=== PATIENT | male | born 1950 | race Caucasian/White ===

== ENCOUNTER 2018-01-22 10:09 | Emergency (ER) | payer MEDICARE ==
[~2018-01-22] VITALS: Ht 167.6 cm; Wt 67.0 kg
[~2018-01-22 10:09] MED LIST: ALBU8.5H8 INH; DULO60CA7 PO; ESZO3TAB28 PO; FLUT16SP2 NAS; FLUT1DIS3 INH; HYDR-3237 PO; MELO15TA24 PO; METH5TAB2 PO; PREG75CA PO; TAMS-11 PO
[2018-01-22 10:14] VITALS: BP 121/70
[2018-01-22] MEDS ORDERED: HYDROmorphone 2 MG/ML, 1ML ONE (10:45)
[2018-01-22] MEDS ORDERED: METHOCARBAMOL 750 MG TABLET ONE (10:46)
[2018-01-22] MEDS ORDERED: METHOCARBAMOL 750 MG TABLET PO ONE (11:00)
[2018-01-22] MEDS ORDERED: HYDROmorphone 2 MG/ML, 1ML IVPush PRN (11:00)
== END 2018-01-22 13:18 | disposition home or self-care (01) ==
LOC: ED 13:12
DX: G89.11 Acute pain due to trauma (principal); G89.29 Other chronic pain; M54.5 Low back pain; C67.9 Malignant neoplasm of bladder, unspecified
CPT/HCPCS: 93005; 96374; 99284; J1170

== ENCOUNTER 2018-03-17 08:04 | Emergency (ER) | payer MEDICARE ==
[~2018-03-17] VITALS: Ht 167.6 cm; Wt 66.0 kg
[2018-03-17 08:07] VITALS: BP 117/67
[2018-03-17] MEDS ORDERED: PREG50CA PO (08:20)
[2018-03-17] MEDS ORDERED: HYDR-879 PO (08:20)
[2018-03-17] MEDS ORDERED: MORPHINE SULFATE 4 MG/ML, 1ML IVPush PRN (08:30)
[2018-03-17] MEDS ORDERED: ONDANSETRON ODT 4 MG PO ONE (08:30)
[2018-03-17] MEDS ORDERED: ONDANSETRON ODT 4 MG ONE (08:37)
[2018-03-17] MEDS ORDERED: MORPHINE SULFATE 4 MG/ML, 1ML ONE (08:38)
[2018-03-17] MEDS ORDERED: METHOCARBAMOL 750 MG TABLET ONE (09:24)
[2018-03-17] MEDS ORDERED: METHOCARBAMOL 750 MG TABLET PO ONE (09:30)
== END 2018-03-17 09:51 | disposition home or self-care (01) ==
LOC: ED 09:12
DX: S39.012A Strain of muscle, fascia and tendon of lower back, initial encounter (principal); X58.XXXA Exposure to other specified factors, initial encounter; Y93.89 Activity, other specified; Y92.89 Other specified places as the place of occurrence of the external cause; Y99.8 Other external cause status; M51.36 Other intervertebral disc degeneration, lumbar region; Z87.891 Personal history of nicotine dependence; C67.9 Malignant neoplasm of bladder, unspecified
CPT/HCPCS: 72110; 96374; 99284; Q0162

== ENCOUNTER → 2018-05-11 | Outpatient (CLI) | payer MEDICARE ==
[~2018-05-11] MED LIST changes: +HYDR-3622 PO; +METH750T87 PO; +OXYC-307 PO; +OXYC1TAB8 PO; +PREG50CA PO
[2018-05-11 12:15] LABS: BASOPHILS # (AUTO) 0.02 x10^3/uL (0-0.1); BASOPHILS % (AUTO) 0 % (0-1); EOSINOPHILS # (AUTO) 0.36 x10^3/uL (0-0.4); EOSINOPHILS % (AUTO) 4 % (1-7); LYMPHOCYTES % (AUTO) 18 % (22-44); MD NO; MEAN CORPUSCULAR HEMOGLOBIN 32.1 pg (27.5-34.5); MEAN CORPUSCULAR HGB CONC 34.1 g/dL (33.2-36.2); MEAN CORPUSCULAR VOLUME 94.2 fL (81-97); MEAN PLATELET VOLUME 9.3 fL (7.4-10.4); MONOCYTES # (AUTO) 0.56 x10^3/uL (0.2-0.8); MONOCYTES % (AUTO) 7 % (2-9); NEUTROPHILS # (AUTO) 5.69 x10^3/uL (1.8-6.8); NEUTROPHILS % (AUTO) 70 % (42-75); PLATELET COUNT 196 x10^3/uL (130-400); RED CELL DISTRIBUTION WIDTH 14.7 % (9.4-14.8)
[2018-05-11 12:22] LABS: MICROSCOPIC AUTO
[2018-05-11 12:25] LABS: CULTURE INDICATED? NO
[2018-05-11 12:25] LABS: INTERNATIONAL NORMALIZED RATIO 0.96 (0.93-1.1)
[2018-05-11 12:27] LABS: ALBUMIN 3.7 g/dL (3.4-5.0); ANION GAP 7 mmol/L (5-15); CALCIUM 9.1 mg/dL (8.5-10.1); CHLORIDE 103 mmol/L (98-107)
[2018-05-11 12:33] LABS: ALANINE AMINOTRANSFERASE 38 U/L (12-78); ALKALINE PHOSPHATASE 74 U/L (45-117); BILIRUBIN,TOTAL 0.6 mg/dL (0.2-1.0); CREATININE 1.28 mg/dL (0.7-1.3)
== END | disposition home or self-care (01) ==
LOC: STAR 11:07
PROVIDERS: ATTEND Neurological Surgery
DX: Z01.818 Encounter for other preprocedural examination (principal); J44.9 Chronic obstructive pulmonary disease, unspecified; M48.02 Spinal stenosis, cervical region; M43.26 Fusion of spine, lumbar region
CPT/HCPCS: 36415; 71046; 80053; 81001; 85025; 85610; 85730; 93005

== ENCOUNTER 2018-05-18 05:22 | Inpatient (IN) | payer MEDICARE ==
[~2018-05-18] VITALS: Ht 167.6 cm; Wt 65.2 kg
[~2018-05-18 05:22] MED LIST changes: -OXYC-307 PO
[2018-05-18] MEDS ORDERED: LACTATED RINGERS 1,000 ML IV SCH (06:11)
[2018-05-18] MEDS ORDERED: BUPIVACAINE/PF 0.5% ONE (06:28)
[2018-05-18] MEDS ORDERED: THROMBIN 5,000 UNIT VIAL TP ONE (06:28)
[2018-05-18] MEDS ORDERED: BACITRACIN 50,000 UNIT ONE (06:29)
[2018-05-18] MEDS ORDERED: EPINEPHRINE 1 MG/ML, 1ML ONE (06:29)
[2018-05-18] MEDS ORDERED: PROPOFOL 10 MG/ML, 20ML ONE ×2 (06:51→08:27)
[2018-05-18] MEDS ORDERED: MIDAZOLAM 1 MG/ML, 2ML ONE (06:51)
[2018-05-18] MEDS ORDERED: LIDOCAINE-MPF 2% ,5ML ONE (06:51)
[2018-05-18] MEDS ORDERED: DEXAMETHASONE 4 MG/ML, 1ML ONE ×2 (06:51)
[2018-05-18] MEDS ORDERED: CEFAZOLIN 1,000 MG ONE ×2 (06:51)
[2018-05-18] MEDS ORDERED: SUCCINYLCHOLINE 20 MG/ML, 10ML ONE (06:51)
[2018-05-18] MEDS ORDERED: FENTANYL PF 250 MCG/5ML ONE (06:51)
[2018-05-18] MEDS ORDERED: ROCURONIUM 10MG/ML,5ML ONE (06:52)
[2018-05-18] MEDS ORDERED: ONDANSETRON 2MG/ML, 2ML ONE (06:52)
[2018-05-18] MEDS ORDERED: PROPOFOL 50 ML ONE (06:53)
[2018-05-18] MEDS ORDERED: ACETAMINOPHEN 500 MG TABLET PO ONE (07:00)
[2018-05-18] MEDS ORDERED: ONDANSETRON ODT 8 MG PO ONE (07:00)
[2018-05-18] MEDS ORDERED: GABAPENTIN 300 MG CAPSULE PO ONE (07:00)
[2018-05-18] MEDS ORDERED: PHENYLEPHRINE 10 MG/ML ONE (07:06)
[2018-05-18] MEDS ORDERED: MIDAZOLAM 1 MG/ML, 2ML IV PRN (08:00)
[2018-05-18] MEDS ORDERED: DIAZEPAM 5 MG/ML, 2ML IVPush PRN (08:00)
[2018-05-18] MEDS ORDERED: LORazepam 2 MG/ML, 1ML IVPush PRN (08:00)
[2018-05-18] MEDS ORDERED: ALBUTEROL SULFATE 2.5 MG/3 ML NPPB PRN (08:00)
[2018-05-18] MEDS ORDERED: SCOPOLAMINE PATCH, 1.5MG PATCH.TD72 TD PRN (08:00)
[2018-05-18] MEDS ORDERED: FENTANYL PF 100 MCG/2ML IV PRN (08:00)
[2018-05-18] MEDS ORDERED: MEPERIDINE/PF 25MG/0.5ML IVPush PRN (08:00)
[2018-05-18] MEDS ORDERED: hydrALAzine 20 MG/ML, 1ML IV PRN (08:00)
[2018-05-18] MEDS ORDERED: EPHEDRINE 50 MG/ML, 1ML IVPush PRN (08:00)
[2018-05-18] MEDS ORDERED: MORPHINE SULFATE 4 MG/ML, 1ML IVPush PRN (08:00)
[2018-05-18] MEDS ORDERED: METOPROLOL 1 MG/ML, 5ML IV PRN (08:00)
[2018-05-18] MEDS ORDERED: METOCLOPRAMIDE 5 MG/ML, 2ML IV PRN (08:00)
[2018-05-18] MEDS ORDERED: LABETALOL 5MG/ML, 20ML IV PRN ×2 (08:00→11:30)
[2018-05-18] MEDS ORDERED: OXYcodone 5 MG/5 ML ORAL.SOL UDC PO PRN (08:00)
[2018-05-18] MEDS ORDERED: LORazepam 2 MG/ML, 1ML ONE (09:14)
[2018-05-18] MEDS ORDERED: HYDROmorphone 2 MG/ML, 1ML ONE (09:14)
[2018-05-18] MEDS ORDERED: OXYcodone 5 MG/5 ML ORAL.SOL UDC ONE (09:14)
[2018-05-18] MEDS: HYDROmorphone 1 MG/ML, 1ML IV PRN ×3 (09:18→09:41)
[2018-05-18 11:00] VITALS: BP 115/65
[2018-05-18 11:03] VITALS: BP 115/65
[2018-05-18] MEDS ORDERED: BISACODYL 10 MG SUPP PR PRN (11:30)
[2018-05-18] MEDS ORDERED: MAGNESIUM HYDROXIDE 8%, 30ML UDC PO PRN (11:30)
[2018-05-18] MEDS ORDERED: PROMETHAZINE 25 MG/ML, 1ML IM PRN (11:30)
[2018-05-18] MEDS ORDERED: METHOCARBAMOL 750 MG TABLET PO PRN (11:30)
[2018-05-18] MEDS ORDERED: DIPHENHYDRAMINE 50 MG CAPSULE PO PRN (11:30)
[2018-05-18] MEDS ORDERED: morphine SULFATE 10 MG/ML, 1ML IV PRN (11:30)
[2018-05-18] MEDS ORDERED: ONDANSETRON 2MG/ML, 2ML IV PRN (11:30)
[2018-05-18] MEDS ORDERED: ZOLPIDEM 5MG TABLET PO PRN (12:00)
[2018-05-18] MEDS ORDERED: HYDROcodone/APAP 10/325 MG TABLET PO PRN (12:00)
[2018-05-18 12:47] VITALS: BP 123/68
[2018-05-18] MEDS: D5%-0.9% NACL+KCL 20MEQ 1,000 ML IV SCH ×2 (13:07→22:30)
[2018-05-18] MEDS: OXYcodone/APAP 10/325MG TABLET PO PRN ×2 (16:15→20:31)
[2018-05-18] MEDS: CEFAZOLIN PMX 1GM/50ML 50 ML IVPB SCH ×2 (16:15→23:52)
[2018-05-18] MEDS: ALBUTEROL SULFATE 2.5 MG/3 ML NPPB SCH ×2 (17:10→20:27)
[2018-05-18] MEDS: PREGABALIN 25 MG CAPSULE PO SCH (20:29)
[2018-05-18] MEDS: DULOXETINE 30 MG CAPSULE.DR PO SCH (20:29)
[2018-05-18 20:41] VITALS: BP 117/73
[2018-05-19] MEDS: OXYcodone/APAP 10/325MG TABLET PO PRN ×4 (00:35→12:57)
[2018-05-19 03:50] VITALS: BP 120/72
[2018-05-19 07:13] VITALS: BP 118/77
[2018-05-19] MEDS: PREGABALIN 25 MG CAPSULE PO SCH (08:03)
[2018-05-19] MEDS: DULOXETINE 30 MG CAPSULE.DR PO SCH (08:03)
[2018-05-19] MEDS: D5%-0.9% NACL+KCL 20MEQ 1,000 ML IV SCH (08:30)
[2018-05-19] MEDS: ALBUTEROL SULFATE 2.5 MG/3 ML NPPB SCH ×3 (08:35→14:19)
[2018-05-19] MEDS ORDERED: FLUTICASONE NASAL SPRAY 16GM NAS SCH (09:00)
[2018-05-19] MEDS ORDERED: SENNA/DOCUSATE TABLET PO SCH (09:00)
[2018-05-19] MEDS ORDERED: OXYC-307 PO (14:26)
[2018-05-19] MEDS ORDERED: METH750T87 PO (14:27)
[2018-05-19 15:09] VITALS: BP 134/71
== END 2018-05-19 15:10 | disposition home or self-care (01) | DRG 472 ==
LOC: ORIP 05:22 → 4NOR 10:52
PROVIDERS: ADMIT Neurological Surgery; ATTEND Neurological Surgery
PROC: 0RB30ZZ Excision of Cervical Vertebral Disc, Open Approach (ICD-10-PCS; 2018-05-18)
PROC: 4A11X4G Monitoring of Peripheral Nervous Electrical Activity, Intraoperative, External Approach (ICD-10-PCS; 2018-05-18)
PROC: 0RG20A0 Fusion of 2 or more Cervical Vertebral Joints with Interbody Fusion Device, Anterior Approach, Anterior Column, Open Approach (ICD-10-PCS; principal; 2018-05-18 07:00)
DX: M48.02 Spinal stenosis, cervical region (principal); G95.20 Unspecified cord compression; M50.123 Cervical disc disorder at C6-C7 level with radiculopathy; M53.2X2 Spinal instabilities, cervical region; Z88.8 Allergy status to other drugs, medicaments and biological substances; I10 Essential (primary) hypertension; G89.29 Other chronic pain; M19.90 Unspecified osteoarthritis, unspecified site; N40.0 Benign prostatic hyperplasia without lower urinary tract symptoms
CPT/HCPCS: 72040; 94640; C1713; G0378; J0171; J0690; J1100; J1170; J2250; J2405; J2704; J3010; J3490; J7613; Q0162; C1762; J0330; J2060; J2370; J3480; J7120

== ENCOUNTER 2018-07-05 13:11 | Emergency (ER) | payer MEDICARE ==
[~2018-07-05] VITALS: Ht 170.2 cm; Wt 66.0 kg
[~2018-07-05 13:11] MED LIST changes: +MORP-52 PO; +OXYC-307 PO; +OXYC10TA6 PO
--- NOTE | 2018-07-05 13:42 | NUR ---
DR MIR TO [facility] EVALUATING PT AT THIS TIME.
[2018-07-05] MEDS ORDERED: DIAZEPAM 5 MG/ML, 10ML VIAL IV ONE (14:00)
[2018-07-05] MEDS ORDERED: HYDROmorphone 2 MG/ML, 1ML IVPush PRN (14:00)
[2018-07-05] MEDS ORDERED: SODIUM CHLORIDE FLUSH 10ML SYR IVF ONE (14:00)
[2018-07-05] MEDS ORDERED: HYDROmorphone 2 MG/ML, 1ML ONE (14:07)
[2018-07-05 14:11] LABS: BASOPHILS # (AUTO) 0.03 x10^3/uL (0-0.1); BASOPHILS % (AUTO) 0 % (0-1); EOSINOPHILS # (AUTO) 0.18 x10^3/uL (0-0.4); EOSINOPHILS % (AUTO) 2 % (1-7); LYMPHOCYTES # (AUTO) 2.59 x10^3/uL (1-3.4); LYMPHOCYTES % (AUTO) 31 % (22-44); MD NO; MEAN CORPUSCULAR HEMOGLOBIN 30.8 pg (27.5-34.5); MEAN CORPUSCULAR HGB CONC 33.2 g/dL (33.2-36.2); MEAN CORPUSCULAR VOLUME 92.5 fL (81-97); MEAN PLATELET VOLUME 8.6 fL (7.4-10.4); MONOCYTES % (AUTO) 8 % (2-9); NEUTROPHILS # (AUTO) 4.87 x10^3/uL (1.8-6.8); NEUTROPHILS % (AUTO) 58 % (42-75); PLATELET COUNT 288 x10^3/uL (130-400); RED BLOOD COUNT 4.69 x10^6/uL (4.38-5.82); RED CELL DISTRIBUTION WIDTH 15.2 % (9.4-14.8)
[2018-07-05 14:18] LABS: ALBUMIN 3.8 g/dL (3.4-5.0); ANION GAP 6 mmol/L (5-15); CALCIUM 9.1 mg/dL (8.5-10.1); CHLORIDE 102 mmol/L (98-107); CREATININE 0.92 mg/dL (0.7-1.3)
--- NOTE | 2018-07-05 15:00 | NUR ---
PT'S NERVER STIMULATOR NOT FULLY CHARGED AND PER MRI, IT NEEDS TO BE. IT TAKES A FEW HOURS FOR THE STIMULATOR TO CHARGE. MD WILL BE NOTIFIED.
--- NOTE | 2018-07-05 15:26 | NUR ---
PT UNABLE TO PROVIDE A URINE SAMPLE. WATER PROVIDED.
[2018-07-05 16:14] LABS: MICROSCOPIC NOT IND
--- NOTE | 2018-07-05 16:14 | NUR ---
PT TO CT SCAN
[2018-07-05] MEDS ORDERED: OMNIPAQUE 350 MG/ML, 100ML BOTTLE ONE (16:24)
[2018-07-05 16:28] LABS: CULTURE INDICATED? NO
--- NOTE | 2018-07-05 16:39 | NUR ---
SBAR report received from RN, Zeny. Pt resting on [place], aware that we are waiting on CT scan results.
[2018-07-05 17:45] VITALS: BP 138/80
--- NOTE | 2018-07-05 17:49 | NUR ---
Patient/Caregiver given discharge instructions and they have confirmed that they understand the instructions. Patient ambulatory with steady gait.
== END 2018-07-05 17:51 | disposition home or self-care (01) ==
LOC: ED 16:26
DX: M51.16 Intervertebral disc disorders with radiculopathy, lumbar region (principal); Z87.891 Personal history of nicotine dependence; G89.29 Other chronic pain
CPT/HCPCS: 36415; 72133; 76857; 80048; 81003; 82040; 85025; 96374; 96375; 99284; J1170; J3360; Q9967

== ENCOUNTER 2018-12-07 17:10 | Emergency (ER) | payer MEDICARE ==
--- NOTE | 2018-12-07 17:44 | NUR ---
Lab at bedside.
[2018-12-07] MEDS ORDERED: TRAZ-137 PO (17:51)
[2018-12-07] MEDS ORDERED: SULF-169 PO (17:51)
[2018-12-07] MEDS ORDERED: PREG100C PO (17:51)
[2018-12-07] MEDS ORDERED: METH10TA4 PO (17:51)
[2018-12-07] MEDS ORDERED: TAMS-11 PO (17:51)
[2018-12-07] MEDS ORDERED: OXYC-302 PO (17:51)
--- NOTE | 2018-12-07 17:51 | NUR ---
XR at bedside.
[2018-12-07 17:58] LABS: BASOPHILS # (AUTO) 0.03 x10^3/uL (0-0.1); BASOPHILS % (AUTO) 0 % (0-1); EOSINOPHILS # (AUTO) 0.64 x10^3/uL (0-0.4); EOSINOPHILS % (AUTO) 9 % (1-7); LYMPHOCYTES # (AUTO) 1.27 x10^3/uL (1-3.4); LYMPHOCYTES % (AUTO) 18 % (22-44); MD NO; MEAN CORPUSCULAR HEMOGLOBIN 31.2 pg (27.5-34.5); MEAN CORPUSCULAR HGB CONC 32.5 g/dL (33.2-36.2); MEAN CORPUSCULAR VOLUME 96.1 fL (81-97); MEAN PLATELET VOLUME 8.7 fL (7.4-10.4); MONOCYTES # (AUTO) 0.48 x10^3/uL (0.2-0.8); MONOCYTES % (AUTO) 7 % (2-9); NEUTROPHILS # (AUTO) 4.51 x10^3/uL (1.8-6.8); NEUTROPHILS % (AUTO) 65 % (42-75); PLATELET COUNT 177 x10^3/uL (130-400); RED BLOOD COUNT 3.96 x10^6/uL (4.38-5.82); RED CELL DISTRIBUTION WIDTH 14.1 % (9.4-14.8)
--- NOTE | 2018-12-07 17:58 | NUR ---
Dr. Hernadez at bedside to evaluate pt.
[2018-12-07] MEDS ORDERED: LIDOCAINE 2%,20 ML JEL.PF.APP MM ONE ×2 (18:00→18:05)
[2018-12-07] MEDS ORDERED: HYDROmorphone 1 MG/ML, 1ML VIAL ONE (18:08)
[2018-12-07 18:10] LABS: ALANINE AMINOTRANSFERASE 19 U/L (12-78); ALBUMIN 3.4 g/dL (3.4-5.0); ANION GAP 6 mmol/L (5-15); CALCIUM 8.1 mg/dL (8.5-10.1); CHLORIDE 106 mmol/L (98-107)
[2018-12-07 18:14] LABS: ALKALINE PHOSPHATASE 64 U/L (45-117); BILIRUBIN,TOTAL 0.1 mg/dL (0.2-1.0); TOTAL PROTEIN 6.5 g/dL (6.4-8.2); TROPONIN I < 0.015 ng/mL (0.000-0.045)
[2018-12-07] MEDS ORDERED: HYDROmorphone 1 MG/ML, 1ML INJ IM ONE (18:30)
[2018-12-07 19:12] VITALS: BP 125/79
--- NOTE | 2018-12-07 19:12 | NUR ---
Cordero catheter inserted, urine sample collected and sent to lab, cordero bag changed to leg bag and pt demonstrates use of leg bag. Dr. Hernadez at bedside to discuss d/c information.
== END 2018-12-07 19:29 | disposition home or self-care (01) ==
LOC: ED 19:14
DX: R33.9 Retention of urine, unspecified (principal); R10.30 Lower abdominal pain, unspecified; Z85.51 Personal history of malignant neoplasm of bladder; M54.9 Dorsalgia, unspecified; G89.29 Other chronic pain; Z88.6 Allergy status to analgesic agent; Z79.899 Other long term (current) drug therapy
CPT/HCPCS: 36415; 51702; 71045; 80053; 84484; 85025; 93005; 96372; 99284; J1170

== ENCOUNTER 2018-12-09 13:47 | Emergency (ER) | payer MEDICARE ==
[~2018-12-09] VITALS: Ht 170.2 cm; Wt 67.7 kg
[~2018-12-09 13:47] MED LIST changes: +METH10TA4 PO; +OXYC-302 PO; +PREG100C PO; +SULF-169 PO; +TRAZ-137 PO
[2018-12-09 14:07] VITALS: BP 123/75
[2018-12-09 14:37] LABS: BASOPHILS # (AUTO) 0.03 x10^3/uL (0-0.1); BASOPHILS % (AUTO) 1 % (0-1); EOSINOPHILS # (AUTO) 0.57 x10^3/uL (0-0.4); EOSINOPHILS % (AUTO) 9 % (1-7); LYMPHOCYTES # (AUTO) 1.14 x10^3/uL (1-3.4); LYMPHOCYTES % (AUTO) 17 % (22-44); MD NO; MEAN CORPUSCULAR HEMOGLOBIN 31.5 pg (27.5-34.5); MEAN CORPUSCULAR HGB CONC 33.4 g/dL (33.2-36.2); MEAN CORPUSCULAR VOLUME 94.4 fL (81-97); MEAN PLATELET VOLUME 8.4 fL (7.4-10.4); MONOCYTES # (AUTO) 0.45 x10^3/uL (0.2-0.8); MONOCYTES % (AUTO) 7 % (2-9); NEUTROPHILS # (AUTO) 4.37 x10^3/uL (1.8-6.8); NEUTROPHILS % (AUTO) 67 % (42-75); PLATELET COUNT 201 x10^3/uL (130-400); RED BLOOD COUNT 4.21 x10^6/uL (4.38-5.82); RED CELL DISTRIBUTION WIDTH 13.9 % (9.4-14.8)
--- NOTE | 2018-12-09 14:39 | NUR ---
ACADEMIC DEAN: PT TO ROOM FROM [facility]
[2018-12-09 14:41] LABS: ALBUMIN 3.6 g/dL (3.4-5.0); ANION GAP 5 mmol/L (5-15); CALCIUM 8.6 mg/dL (8.5-10.1); CHLORIDE 104 mmol/L (98-107); CREATININE 1.32 mg/dL (0.7-1.3)
[2018-12-09] MEDS ORDERED: HYDROcodone/APAP 5/325 TABLET ONE (15:11)
[2018-12-09] MEDS ORDERED: HYDROmorphone 1 MG/ML, 1ML VIAL ONE (15:23)
[2018-12-09] MEDS ORDERED: HYDROcodone/APAP 5/325 TABLET PO ONE (15:30)
[2018-12-09] MEDS ORDERED: HYDROmorphone 2 MG/ML, 1ML IM ONE (15:30)
--- NOTE | 2018-12-09 15:37 | NUR ---
PER MD NO UA NEEDED AT THIS TIME, PT ON ABX AND HAD UA A FEW DAYS AGO. PT MEDICATED PER AUG, SET UP FOR MANUAL BLADDER IRRIGAITON
--- NOTE | 2018-12-09 16:01 | NUR ---
BAG DRAINING WELL BEFORE MANUAL IRRIGATION, ABOUT 300CC SINCE PT ARRIVED TO ED. PT EMPTIED URINE, NO SIGNS OF CLOTS, URINE NOT HAZY, URINE SLIGHTLY RED/ORANGE - PT ON AZO. MANUAL IRRIGATION PERFORMED, NO CLOTS, URINE REMOVED FROM BLADDER CLEAR AND YELLOW. NO RESISTANCE FELT ON MANUAL IRRIGATION. NOTIFIED.
--- NOTE | 2018-12-09 16:51 | NUR ---
TO CONTACT PTS UROLOGIST. PT RESTING IN [facility]. CATHETER FLOWING FINE AND EMPTYING BLADDER
--- NOTE | 2018-12-09 17:29 | NUR ---
TASK RN: DC EDUCATION PROVIDED, PT DEMONSTRATES UNDERSTANDING.PT AMBULATED STEADILY TO DC WITH RN AND FAMILY
== END 2018-12-09 17:30 | disposition home or self-care (01) ==
LOC: ED 17:24
DX: T83.038A Leakage of other urinary catheter, initial encounter (principal); R10.30 Lower abdominal pain, unspecified; Z87.891 Personal history of nicotine dependence
CPT/HCPCS: 36415; 51700; 80048; 82040; 85025; 96372; 99284; J1170; 99283

== ENCOUNTER → 2021-02-02 | Outpatient (CLI) | payer MEDICARE ==
[~2021-02-02] MED LIST changes: +GABA100C PO; +HYDR1TAB53 PO; +LEXAPRO PO; -OXYC-302 PO; -OXYC-307 PO; +OXYC-380 PO; +OXYC1TAB14 PO; +SYMBICORT INH; -TRAZ-137 PO; +TRAZ-175 PO; +TRAZ50TA66 PO
[2021-02-02 13:30] LABS: MICROSCOPIC NOT IND
[2021-02-02 13:37] LABS: BASOPHILS % (AUTO) 0 % (0-1); EOSINOPHILS % (AUTO) 4 % (1-7); LYMPHOCYTES % (AUTO) 22 % (22-44); MEAN CORPUSCULAR HEMOGLOBIN 32.7 pg (27.5-34.5); MEAN CORPUSCULAR HGB CONC 34.2 g/dL (33.2-36.2); MEAN PLATELET VOLUME 8.6 fL (7.4-10.4); MONOCYTES % (AUTO) 10 % (2-9); NEUTROPHILS % (AUTO) 64 % (42-75); PLATELET COUNT 196 x10^3/uL (130-400); RED BLOOD COUNT 4.22 x10^6/uL (4.38-5.82); RED CELL DISTRIBUTION WIDTH 13.7 % (9.4-14.8)
[2021-02-02 13:42] LABS: CALCIUM 8.6 mg/dL (8.5-10.1); CREATININE 0.73 mg/dL (0.7-1.3)
[2021-02-02 13:43] LABS: INTERNATIONAL NORMALIZED RATIO 0.96 (0.93-1.1); PROTHROMBIN TIME 10.3 Seconds (9.6-11.5)
[2021-02-02 13:57] LABS: ANION GAP 7 mmol/L (5-15); CHLORIDE 99 mmol/L (98-107)
== END | disposition home or self-care (01) ==
LOC: STAR 12:21
PROVIDERS: ATTEND Urology
DX: Z01.818 Encounter for other preprocedural examination (principal); C67.9 Malignant neoplasm of bladder, unspecified
CPT/HCPCS: 36415; 80048; 81003; 85025; 85610; 87086; 93005

== ENCOUNTER 2021-02-16 08:57 | Day surgery (SDC) | payer MEDICARE ==
[~2021-02-16] VITALS: Ht 167.6 cm; Wt 52.6 kg
[2021-02-16 09:28] VITALS: BP 118/80
[2021-02-16] MEDS ORDERED: LACTATED RINGERS 1,000 ML IV SCH (09:30)
[2021-02-16] MEDS ORDERED: CHLORHEXIDINE 15 ML UDC PO ONE (09:30)
[2021-02-16] MEDS ORDERED: CHLORHEXIDINE 15 ML UDC ONE (09:33)
[2021-02-16] MEDS ORDERED: GEMCITABINE HCL 1,000 MG in SODIUM CHLORIDE 0.9% 23.7 ML IS ONE (11:00)
[2021-02-16] MEDS ORDERED: FENTANYL PF 100 MCG/2ML ONE ×2 (11:47→13:05)
[2021-02-16] MEDS ORDERED: MIDAZOLAM 1 MG/ML, 2ML ONE ×2 (11:48)
[2021-02-16] MEDS ORDERED: hydrALAzine 20 MG/ML, 1ML IV PRN (12:00)
[2021-02-16] MEDS ORDERED: MEPERIDINE/PF 25MG/0.5ML IVPush PRN (12:00)
[2021-02-16] MEDS ORDERED: OXYcodone 5 MG/5 ML ORAL.SOL UDC PO PRN (12:00)
[2021-02-16] MEDS ORDERED: HYDROmorphone 1 MG/ML, 1ML INJ IVPush PRN (12:00)
[2021-02-16] MEDS ORDERED: LABETALOL 5MG/ML, 20ML IV PRN (12:00)
[2021-02-16] MEDS ORDERED: FENTANYL PF 100 MCG/2ML IV PRN (12:00)
[2021-02-16] MEDS ORDERED: HALOPERIDOL 5 MG/ML IV PRN (12:00)
[2021-02-16] MEDS ORDERED: PROMETHAZINE 25 MG/ML, 1ML IVPush PRN (12:00)
[2021-02-16] MEDS ORDERED: DIPHENHYDRAMINE 50 MG/ML, 1ML IVPush PRN (12:00)
[2021-02-16] MEDS ORDERED: PROPOFOL 10 MG/ML, 20ML ONE (12:10)
[2021-02-16] MEDS ORDERED: ONDANSETRON 2MG/ML, 2ML ONE ×2 (12:10→12:11)
[2021-02-16] MEDS ORDERED: DEXAMETHASONE 4 MG/ML, 1ML ONE (12:10)
[2021-02-16] MEDS ORDERED: CEFAZOLIN 1,000 MG ONE (12:10)
[2021-02-16] MEDS ORDERED: HYDROcodone/APAP 7.5-325MG/15ML UDC PO PRN (13:00)
[2021-02-16] MEDS ORDERED: HYDROcodone/APAP 7.5-325MG/15ML UDC ONE (13:05)
== END 2021-02-16 13:47 | disposition home or self-care (01) ==
LOC: OUT 08:57
PROVIDERS: ATTEND Urology
DX: C67.1 Malignant neoplasm of dome of bladder (principal); I25.10 Atherosclerotic heart disease of native coronary artery without angina pectoris; G47.33 Obstructive sleep apnea (adult) (pediatric); J44.9 Chronic obstructive pulmonary disease, unspecified; Z20.822 Contact with and (suspected) exposure to COVID-19; Z79.1 Long term (current) use of non-steroidal anti-inflammatories (NSAID); Z79.891 Long term (current) use of opiate analgesic; Z79.899 Other long term (current) drug therapy
CPT/HCPCS: 52234; 87635; 88307; J0690; J1100; J2250; J2405; J2704; J3010; J7120; J9201